=== PATIENT | male | born 1975 | race Two or more races ===

== ENCOUNTER 2024-09-03 06:38 | Day surgery (SDC) | payer BC ==
[2024-08-31 15:25] VITALS: BMI 25.4
[2024-09-03] MEDS ORDERED: ceFAZolin SODIUM 1 GM VIAL ONE (09:55)
[2024-09-03] MEDS ORDERED: MIDAZOLAM HCL 2 MG/2 ML SINGLE DOSE VIAL ONE (09:55)
[2024-09-03] MEDS ORDERED: ONDANSETRON 4 MG/2 ML VIAL ONE (09:55)
[2024-09-03] MEDS: ceFAZolin SODIUM 1 GM VIAL IVPB ONE (09:58)
[2024-09-03] MEDS ORDERED: KETOROLAC TROMETHAMINE 30 MG/1 ML VIAL ONE (10:03)
[2024-09-03 12:23] VITALS: RESP 20; TEMP 97.2
[2024-09-03 12:25] VITALS: BP 112/78; PULSE 65
== END 2024-09-03 11:31 | disposition home or self-care (01) ==
LOC: JASU-SURG 06:38
PROVIDERS: ATTEND Urology
PROC: 0TF4XZZ Fragmentation in Left Kidney Pelvis, External Approach (ICD-10-PCS; principal; 2024-09-03 09:45)
DX: N20.0 Calculus of kidney (principal)
CPT/HCPCS: 82962; 94760